=== PATIENT | male | born 1980 | race African-American/Black ===

== ENCOUNTER 2023-09-16 02:51 | Emergency (ER) | payer MEDICAID ==
[~2023-09-16] VITALS: Ht 175.3 cm; Wt 87.0 kg
[2023-09-16 02:57] VITALS: BP 160/102; PULSE 106; RESP 18; TEMP 98; O2SAT 99
[2023-09-16] MEDS: TETANUS, DIPHTHERIA, PERTUSSIS VAC/PF 0.5ML (>10YR OLD) IM ONE (03:59)
== END 2023-09-16 04:05 | disposition left against medical advice (07) ==
LOC: EDBD 03:07 → ER 03:07
DX: S30.850A Superficial foreign body of lower back and pelvis, initial encounter (principal); Z88.0 Allergy status to penicillin; Y04.0XXA Assault by unarmed brawl or fight, initial encounter; Y93.89 Activity, other specified; Y92.89 Other specified places as the place of occurrence of the external cause; Y99.8 Other external cause status
CPT/HCPCS: 99284; Z7610; 90715

== ENCOUNTER 2024-03-19 15:06 | Emergency (ER) | payer MEDICAID ==
[~2024-03-19] VITALS: Ht 172.7 cm; Wt 102.0 kg
[2024-03-19 15:07] VITALS: BP 161/100; PULSE 84; RESP 18; TEMP 98.4; O2SAT 99
[2024-03-19] MEDS ORDERED: LIDOCAINE HCL/EPINEPHRINE 1%-EPI 1:100,000 50ML VIAL INFIL ONE (17:15)
[2024-03-19] MEDS: LIDOCAINE HCL/EPINEPHRINE 1%-EPI 1:100,000 20ML VIAL INFIL NR (17:15)
[2024-03-19] MEDS ORDERED: BO1 TP (17:42)
[2024-03-19] MEDS: TETANUS, DIPHTHERIA, PERTUSSIS VAC/PF 0.5ML (>10YR OLD) IM ONE (18:23)
== END 2024-03-19 19:49 | disposition home or self-care (01) ==
LOC: ER 15:06
DX: S51.811A Laceration without foreign body of right forearm, initial encounter (principal); Z88.0 Allergy status to penicillin; Y04.0XXA Assault by unarmed brawl or fight, initial encounter; Y93.89 Activity, other specified; Y92.89 Other specified places as the place of occurrence of the external cause; Y99.8 Other external cause status
CPT/HCPCS: 90715; 12002; 90471; 99283; J3490; Z7610 ×2